=== PATIENT | female | born 1930 | race Caucasian/White ===

== ENCOUNTER → 2017-04-10 | Outpatient (CLI) | payer MEDICARE ==
[~2017-04-10] MED LIST: ACHD5005 PO; ASP325T; ASP81TEC PO; ATR20T PO; BACL10TA PO; CYCL10TA9 PO; DILT240C PO; HCT25T PO; HYDR-1231 PO; HYDR-2854 PO; LEVO75TA57 PO; LSNP10T PO; LVF500T PO; LVT.05T; LVT.15T PO; MTF500T PO; MTP100TCR; SENN1TAB76 PO; SIMV40TA2 PO; SODI44SP4 NS; SULF1TAB34 PO; TRAM50TA2 PO; WARF5TAB6 PO; WRF2.5T PO; WRF5T PO; [UNRECOGNIZED DRUG - OTHER]
--- NOTE | 2017-04-10 19:44 | Diagnostic Imaging Report ---
EXAMINATION: Left breast ultrasound. INDICATION: Left breast lump. FINDINGS: The four quadrants and retroareolar region of the left breast was scanned with no underlying abnormality seen. IMPRESSION: Negative study. ACR BI-RADS Category 1: Negative. Result letter will be mailed to the patient. Note: At least 10% of breast cancer is not imaged by mammography. Dictated by: Dictated on workstation # [id number]
--- NOTE | 2017-04-10 19:46 | Diagnostic Imaging Report ---
Bilateral breast diagnostic mammogram. The current study was also evaluated with a Computer Aided Detection (CAD) system. INDICATION: Left breast lump. COMPARISON: 05/11/15. FINDINGS: There are extensive bilateral calcifications mostly in the right breast with benign appearance and without significant change from prior exam. Background scattered fibroglandular densities are seen with no focal lesion identified. IMPRESSION: Stable mammographic findings with no evidence of malignancy. Ultrasound evaluation pending. ACR BI-RADS Category 0: Incomplete. (Needs additional imaging evaluation). Result letter will be mailed to the patient. Note: At least 10% of breast cancer is not imaged by mammography. Dictated by: Dictated on workstation # [id number]
== END ==
LOC: RAD 13:21
PROVIDERS: ATTEND Nurse Practitioner
DX: N63 Unspecified lump in breast (principal)
CPT/HCPCS: 76641; 77066

== ENCOUNTER → 2017-07-09 | Outpatient (CLI) | payer MEDICARE ==
[~2017-07-09] VITALS: Ht 162.6 cm; Wt 97.1 kg
[~2017-07-09] MED LIST changes: +LIDOCAINE 1% 10 MG/ML 0.2 ML SYR (FOR IV START) INJ ONE; +NS IV 1000 ML 1,000 ML IV SCH; +NS IV 1000 ML 1,000 ML ONE
[2017-07-09 14:25] VITALS: BP 131/72
[2017-07-09 17:33] VITALS: BP 131/72
== END ==
LOC: SDC 13:47
PROVIDERS: ATTEND Nurse Practitioner
DX: N17.9 Acute kidney failure, unspecified (principal)
CPT/HCPCS: 96360; 96361

== ENCOUNTER → 2017-08-05 | Outpatient (CLI) | payer MEDICARE ==
[~2017-08-05] MED LIST changes: -LIDOCAINE 1% 10 MG/ML 0.2 ML SYR (FOR IV START) INJ ONE; -NS IV 1000 ML 1,000 ML IV SCH; -NS IV 1000 ML 1,000 ML ONE
--- NOTE | 2017-08-05 18:11 | Diagnostic Imaging Report ---
INDICATION: Fall with left shoulder pain. AP, oblique, and transscapular views of the left shoulder are obtained at 3:53 p.m. FINDINGS: There is a displaced fracture of the left humeral neck, with distal component displaced medially compared to the proximal component. There is no dislocation. AC joint shows some degenerative change but no acute abnormality. IMPRESSION: Comminuted displaced fracture of the left humeral neck as described above. Dictated by: Dictated on workstation # [id number]
== END ==
LOC: RAD 15:37
PROVIDERS: ATTEND Nurse Practitioner
DX: S42.292A Other displaced fracture of upper end of left humerus, initial encounter for closed fracture (principal); X58.XXXA Exposure to other specified factors, initial encounter; Y99.8 Other external cause status
CPT/HCPCS: 73030